=== PATIENT | male | born 1955 | race Caucasian/White ===

== ENCOUNTER 2016-09-12 12:34 | Day surgery (SDC) | payer BC ==
[~2016-09-12] VITALS: Ht 182.9 cm; Wt 75.0 kg
[2016-09-12] MEDS ORDERED: BP MED (13:13)
[2016-09-12] MEDS ORDERED: PSORIASIS MED (13:13)
[2016-09-12 13:48] VITALS: BP 112/74; PULSE 71; RESP 12
[2016-09-12] MEDS ORDERED: FENTAnyl 50 MCG/ML VIAL ONE (14:30)
[2016-09-12] MEDS ORDERED: MIDAZOLAM 1 MG/ML 2 ML INJ ONE ×2 (14:30)
[2016-09-12 14:57] VITALS: BP 116/74; PULSE 68; RESP 16
--- NOTE | 2016-09-12 15:49 | GILP ---
DATE OF PROCEDURE: NAME OF PROCEDURE: Colonoscopy and polypectomy. SURGEON: Cj Royal MD PREOPERATIVE DIAGNOSIS: Screening colonoscopy. POSTOPERATIVE DIAGNOSES: 1. Colonoscopy all the way to the cecum. 2. Sigmoid colon polyp was removed using the snare and electrocautery. 3. Internal hemorrhoids. INDICATION FOR THE PROCEDURE: Mr. Gustavo Treviño is a 60-year-old male patient who was scheduled for screening colonoscopy. The procedure and possible complications were well explained to the patient. He understood and cons ented to the procedure. DESCRIPTION OF PROCEDURE: Under the influence of fentanyl and Versed the colonoscope was carefully introduced in the rectum and under direct vision it was advanced all the way to the cecum. FINDINGS: Under the influence of fentanyl and Versed, the colonoscope was carefully introduced into the rectum and under direct vision it was advanced all the way to the cecum. FINDINGS: The patient had a small colon polyp and it was removed using the snare and electrocautery . The patient was also noted to have internal hemorrhoids. He tolerated the procedure very well and there was no complication from the procedure. At the end o f the procedure, he was awake, with stable vital signs, and he was discharged home to the care of hi s family. IMPRESSION: 1. Colonoscopy all the way to the cecum. 2. Sigmoid colon polyp was removed using the snare and electrocautery. 3. Internal hemorrhoids. PLAN: 1. Await histopathology report. 2. Next screening colonoscopy in 5 years. Dictated By: CJ SANTIAGO/TC Conf#: [id number] DID#: [id number]
== END 2016-09-12 15:40 | disposition home or self-care (01) ==
LOC: GIL 12:34
PROVIDERS: ATTEND Internal Medicine Gastroenterology
DX: Z12.11 Encounter for screening for malignant neoplasm of colon (principal); D12.5 Benign neoplasm of sigmoid colon; K64.8 Other hemorrhoids
CPT/HCPCS: 45380; 88305; J2250; J3010; Z7610